=== PATIENT | male | born 1990 | race Two or more races ===

== ENCOUNTER 2016-11-15 14:27 | Emergency (ER) | payer OTHER ==
--- NOTE | 2016-11-15 14:34 | EDPHY ---
H & P Stated Complaint: Slipped on snow,fell,rolled down embankment;no LOC;c/o back+ head pain - Personal History Current Tetanus Diphtheria and Acellular Pertussis (TDAP): Yes - Medical/Surgical History Other PMH: RA - Social History Smoking Status: Never smoked Time Seen by Provider: 11/15/16 14:33 Constitutional: Initial Vital Signs Temperature (C) 37.1 C 11/15/16 14:28 Heart Rate 98 11/15/16 14:28 Respiratory Rate 16 11/15/16 14:28 Blood Pressure 148/94 H 11/15/16 14:28 O2 Sat (%) 94 11/15/16 14:28 O2 Delivery Mode Room Air O2 (L/minute) 2 Allergies/Adverse Reactions: fentanyl Allergy (Severe, Verified 11/15/16 14:34) "puts me in a coma" Penicillins Allergy (Intermediate, Verified 11/15/16 14:33) Hives contrast dye Allergy (Uncoded 11/15/16 16:07) Home Medications: Medication Instructions Recorded Naproxen [Naprosyn] 500 mg PO 11/15/16 predniSONE 40 mg PO DAILY #4 tab 11/15/16 Medical Decision Making - Diagnostics Imaging: CT scan of the cervical spine, chest, abdomen and pelvis are normal, reported to me by the radiologist. (Jessica Ac) ED Course/Re-evaluation: CHIEF COMPLAINT: Flank pain, injury HISTORY OF PRESENT ILLNESS: The patient is a 25 y/o male arriving in the custody of [facility] complaining of left flank pain after falling this afternoon. He says, "I tumbled down [facility] as I was picking up trash" and hit the left side of his back on the ground. He denies striking his head, LOC, midline neck or back pain, and weakness or paresthesias. He denies pertinent medical history. REVIEW OF SYSTEMS: A 10 point review of systems was performed and is negative with the exception of the elements mentioned in the history of present illness. PHYSICAL EXAM: HR, BP, O2 Sat, RR. Temp noted General Appearance: Alert, well hydrated, appropriate, and non-toxic appearing. Head: Atraumatic without scalp tenderness or obvious injury Eyes: Pupils equal, round, reactive to light and accommodation, EOMI, no trauma , no injection. Ears: Clear bilaterally, no perforation, normal landmarks Nose: Atraumatic, no rhinorrhea, clear. Throat: There is no erythema or exudates, no lesions, normal tonsils, mucus membranes moist. Neck: Supple, 2+ carotid upstroke, nontender, no lymphadenopathy. Respiratory: No retractions, no distress, no wheezes, and no accessory muscle use. Lungs are clear to auscultation bilaterally. Cardiovascular: Regular rate and rhythm, no murmurs, rubs, or gallops. Bilateral carotid, radial, dorsalis pedis, and posterior tibial pulses intact. Good capillary refill all extremities. Gastrointestinal: Abdomen is soft, nontender, non-distended, no masses, no rebound, no guarding, no peritoneal signs. Musculoskeletal: Left CVA tenderness. Normal active ROM of all extremities, atraumatic. Neurological: Alert, appropriate, and interactive. The patient has normal DTRs and non-focal cranial nerves, motor, sensory, and cerebellar exam. Skin: No rashes, good turgor, no nodules on palpation. Past medical history: Denies Past surgical history: Denies Family history: Noncontributory Social history: In custody of [facility] detention. DIFFERENTIAL DIAGNOSIS: The differential diagnosis for the patient's trauma included but was not limited to intracranial injury, long bone and pelvic bone fractures, spinal injury, intra-abdominal injury, and intra-thoracic injury. MEDICAL DECISION MAKING: This is a healthy incarcerated 25 y/o male complaining of left flank pain secondary to a fall while picking up trash today. He is neurovascularly intact and has left CVA tenderness on exam. No other injuries. Plan for chest, abdomen , pelvis CTs. 1500: Patient signed out to Dr. Ac at shift change pending CT reports. ( Bradley Galaviz) This patient was signed over to me at shift change to check the CT scans. The patient had an allergic reaction to the IV contrast in CT scan consisting of hives, coughing and a sensation of throat swelling. He was given Benadryl 50 mg IV and Solu-Medrol 125 mg IV. I examined him when he returned to the emergency department. Diffuse erythema of the skin, lungs are clear to auscultation. Regarding the trauma, he has mild left flank tenderness, without ecchymosis or abrasion. Abdomen is soft and nontender. Pelvis is stable and nontender. Neck- left lateral tenderness, no midline tenderness. CT scan results discussed with the patient. No evidence for acute fracture or hemorrhage. Abd remains soft and NT. He continues to feel better after the allergic reaction. I will have him take Benadryl 3 times daily for 2 days and write a prescription for prednisone. (Jessica Ac) Differential Diagnosis: Differential diagnosis includes though it is not limited to fracture, intracranial hemorrhage, pneumothorax, hemothorax, intra-abdominal hemorrhage. (Jessica Ac) - Data Points Medications Given: Discontinued Medications Acetaminophen (Tylenol) 650 mg PO EDNOW ONE Stop: 11/15/16 15:29 Last Admin: 11/15/16 16:45 Dose: 650 mg Diphenhydramine HCl (Benadryl Injection) 50 mg IVP EDNOW ONE Stop: 11/15/16 16:08 Last Admin: 11/15/16 16:08 Dose: Not Given Sodium Chloride (Ns) 1,000 mls @ 0 mls/hr IV ONCE ONE PRN Reason: Wide Open Stop: 11/15/16 15:16 Last Admin: 11/15/16 15:19 Dose: 1,000 mls Methylprednisolone Sodium Succinate (Solu-Medrol) 125 mg IVP EDNOW ONE Stop: 11/15/16 16:08 Last Admin: 11/15/16 16:09 Dose: Not Given Departure - Departure Disposition: Home, Routine, Self-Care Clinical Impression: Allergy to intravenous contrast Back contusion Qualifiers: Encounter type: initial encounter Laterality: left Qualifier Code: (S20.222A) Contusion of left back wall of thorax, initial encounter Condition: Good Instructions: Contusion in Adults (ED), General Allergic Reaction (ED) Additional Instructions: 1. Apply ice to sore areas. Expect to feel more sore tomorrow. 2. Take 600mg of ibuprofen every 6-8 hours as needed for pain for the next 2-3 days. 3. Follow up with your primary care provider for symptoms not improved over the next week. 4. Return to the ED for worsening of condition. 5. You are allergic to IV contrast. Take Benadryl 1 tablet 3 times daily for 2 days. Referrals: [facility] [Outside] - As per Instructions Prescriptions: predniSONE 40 mg PO DAILY #4 tab Report Scribed for: Bradley Galaviz Report Scribed by: Radha Mccarthy Date of Report: 11/15/16 Time of Report: 14:35
[2016-11-15] MEDS ORDERED: NS 1,000 ML IV ONE (15:15)
[2016-11-15] MEDS ORDERED: IOPAMIDOL (ISOVUE-300) 100 ML BTL IV ONE (15:20)
[2016-11-15] MEDS ORDERED: ACETAMINOPHEN 325 MG TAB PO ONE (15:28)
[2016-11-15] MEDS ORDERED: methylPREDNISolone SOD SUCC 125 MG/2 ML VIAL IVP ONE (16:07)
--- NOTE | 2016-11-15 16:29 | CT ---
Unenhanced CT Scan of the Cervical Spine Clinical History: 25-year-old male who fell down a hill today, and complains of left-sided neck pain. TECHNIQUE: A multidetector unenhanced helical CT scan was obtained from the clivus caudally through t he upper thoracic spine, with images reformatted at 1.50 mm increments, and are reviewed in soft tiss ue, bone, and lung windows. Parasagittal and paracoronal reconstructed images are reviewed on the wor kstation. The DFOV is 17.6 cm. COMPARISON STUDY: None. FINDINGS: The cervical vertebral body heights, posterior alignments, and the disk spaces are preserve d. There is no acute fracture, or facet malalignment. The interspinous distances are normal. The cran iocervical junction is normal. The predental space, and the atlantoaxial lateral mass alignment is no rmal. The base and the tip of the dens are normal. There is no central canal stenosis, neural foramin al impingement, or focal disk herniation identified. There is no prevertebral hematoma or epidural he matoma identified. The prevertebral soft tissues are normal, as are the lung apices. There is some mi ld thyroid gland heterogeneity, without a discrete mass. The superior mediastinal structures are unre markable. IMPRESSION: Normal unenhanced CT scan of the cervical spine. If there is further clinical concern regarding the patient's symptoms, correlative MR imaging could b e considered, if otherwise not contraindicated. Results were discussed with Dr. Nhung Ac. A test result has been communicated to a licensed care provider and documented in the [facility] Critical Result system on 11/15/2016 16:26, Message ID [id number].
--- NOTE | 2016-11-15 16:34 | CT ---
CT Scan of the Chest (With Contrast) at 1538 hours Clinical Indications: Trauma post fall, right back and abdominal pain, slid on ice. Comparison: None. Technique: During the intravenous machine power injection of 90 mL Isovue-300, multidetector helica l CT imaging was performed from the chest, abdomen and pelvis.. The radiologist manipulated images a t the computer workstation. Dose reduction techniques were utilized. At the end of the contrast exam ination the patient complained of pruritus and tingling in the lower extremities. Patient was given B enadryl and Solu-Medrol intravenously, which improved symptoms. Preliminary report of ALLERGIC reacti on was given to the patient and Dr. Jessica Ac. Findings: No pneumothorax. No suspicious pulmonary nodules. No pneumonia, pleural effusion, or signif icant adenopathy. No aortic aneurysm or dissection. Heart is normal in size without pericardial effus ion. Images of the ribs demonstrate no evidence of rib fracture or sternal fracture. Sagittal reconst ructions demonstrate no thoracic compression fracture. Impression: 1. No acute pulmonary disease. 2. No pneumothorax. 3. No definite rib fracture or pulmonary contusion. Findings and recommendations discussed with Emergency Department physician, Dr. Jessica Ac at 1600 hours on November 15, 2016. Final report concurs with initial preliminary interpretation.
--- NOTE | 2016-11-15 16:37 | CT ---
CT Scan of the Abdomen and Pelvis (With Contrast) at 1538 hours History: Trauma post fall, right back and abdominal pain, slipped on ice. Technique: Axial computed tomographic images of the chest, abdomen and pelvis were obtained with the intravenous administration of 90 mL Isovue-300 contrast. No oral or rectal contrast which limits the study. Dose reduction techniques were utilized. After the procedure the patient complained of prurit us and tingling in the lower extremities with some wheezing and the patient was given intravenous Uziel adryl and steroids with resolution of symptoms. Patient and Dr. Jessica Ac were notified. Delayed i mages were obtained of the abdomen and pelvis. CT Abdomen Findings: Lung bases: No pleural effusion or lower rib fractures. Liver: No laceration. Biliary system: No obstruction. Spleen: No laceration.. Pancreas: Normal. Adrenals: Normal. Kidneys: No renal laceration or urinary tract obstruction. No solid renal masses. No peripancreatic f luid. No retroperitoneal hematoma. Psoas muscles appear homogeneous.. Abdominal Aorta: No aneurysm. No bowel obstruction, ascites, or significant retroperitoneal lymphadenopathy. CT Pelvis Findings: No pelvic fluid collections. Bladder contour is unremarkable. Appendix appears no rmal. No lumbar compression fractures. Impression: 1. No evidence of abdominal or pelvic hemorrhage. 2. Normal CT abdomen and pelvis. 3. Patient is ALLERGIC to contrast. Findings and recommendations discussed with Emergency Department physician, Dr. Jessica Ac at 1610 hours on November 15, 2016. Final report concurs with initial preliminary interpretation. The patient is ALLERGIC to intravenous contrast and should be premedicated in the future.
[2016-11-15 16:53] VITALS: BP 132/88; PULSE 96; RESP 20; TEMP 98.8; O2SAT 97
== END 2016-11-15 16:53 | disposition home or self-care (01) ==
DX: S20.222A Contusion of left back wall of thorax, initial encounter (principal); Z91.041 Radiographic dye allergy status; W00.0XXA Fall on same level due to ice and snow, initial encounter; Y92.89 Other specified places as the place of occurrence of the external cause
CPT/HCPCS: 82947-QW; Q9967